=== PATIENT | female | born 1945 | race Caucasian/White ===

== ENCOUNTER 2019-01-21 16:48 | Emergency (ER) | payer MEDICARE ==
[~2019-01-21] VITALS: Ht 162.6 cm; Wt 90.9 kg
[~2019-01-21 16:48] MED LIST: AMLO5TAB4 PO; ATOR40TA7 PO; CITA20TA28 PO; CLOP75TA15 PO; ESTR1TAB23 PO; LOSA50TA3 PO; METO25TA6 PO; PRED5TAB PO; SYN0.025T PO; TRAZ150T78 PO
[2019-01-21 17:40] LABS: BASOPHILS % (AUTO) 0.5 % (0-1); EOSINOPHILS # (AUTO) 0.1 X10'3 (0-0.9); EOSINOPHILS % (AUTO) 1.3 % (0-6); HEMATOCRIT 32.2 % (35.0-45.0); HEMOGLOBIN 10.6 g/dl (12.0-16.0); LYMPHOCYTES # (AUTO) 1.1 X10'3 (1.1-4.8); LYMPHOCYTES % (AUTO) 15.7 % (21-51); MEAN CORPUSCULAR HEMOGLOBIN 29.5 PG (27.0-31.0); MEAN CORPUSCULAR HGB CONC 32.9 g/dL (33.0-36.5); MEAN CORPUSCULAR VOLUME 89.6 FL (78-98); MEAN PLATELET VOLUME 7.1 FL (7.4-10.4); MONOCYTES # (AUTO) 0.8 X10'3 (0-0.9); MONOCYTES % (AUTO) 11.4 % (2-12); NEUTROPHILS # (AUTO) 4.9 X10'3 (1.8-7.7); NEUTROPHILS % (AUTO) 71.1 % (42-75); PLATELET COUNT 255 X10'3 (140-440); WHITE BLOOD COUNT 6.9 X10'3 (4.5-11.0)
[2019-01-21 17:49] LABS: ALANINE AMINOTRANSFERASE 18 U/L (12-78); ALBUMIN 2.9 G/DL (3.4-5.0); ALBUMIN/GLOBULIN RATIO 0.7 (1.1-1.5); ALKALINE PHOSPHATASE 147 IU/L (46-116); ANION GAP 4 (8-16); ASPARTATE AMINO TRANSFERASE 17 U/L (10-37); BILIRUBIN,TOTAL 0.2 MG/DL (0.1-1.0); BLOOD UREA NITROGEN 13 MG/DL (7-18); BUN/CREATININE RATIO 11.2 (6.6-38.0); CALCIUM 8.7 MG/DL (8.5-10.1); CHLORIDE 105 MMOL/L (99-107); CREATININE 1.16 MG/DL (0.40-0.90); GLUCOSE 114 MG/DL (70-104); POTASSIUM 3.7 MMOL/L (3.5-5.1); SODIUM 139 MMOL/L (135-145); TOTAL CARBON DIOXIDE 30.1 MMOL/L (24-32); TOTAL PROTEIN 6.9 G/DL (6.4-8.2); eGFR 46 ML/MIN
--- NOTE | 2019-01-21 19:18 | NUR ---
PATIENTS DAUGHTER CALLED LEFT PHONE # [id number] [phone]
[2019-01-21] MEDS ORDERED: azithromycin 250mg tablet PO ONE (20:10)
[2019-01-21] MEDS ORDERED: predniSONE 20 mg tablet PO ONE (20:10)
[2019-01-21] MEDS ORDERED: ipratropium/albuterol 3ml nebule NEB ONE (20:10)
[2019-01-21] MEDS ORDERED: PRED20TA PO (20:55)
[2019-01-21] MEDS ORDERED: albuterol 2.5 MG/3 ML nebule NEB ONE (20:55)
[2019-01-21] MEDS ORDERED: AZIT-63 PO (20:55)
[2019-01-21] MEDS ORDERED: ALBU18HF2 INH (20:55)
[2019-01-21] MEDS ORDERED: BENZ-16 PO (20:57)
[2019-01-21] MEDS ORDERED: benzonatate 100mg capsule PO ONE (21:00)
[2019-01-21 21:35] VITALS: BP 168/82
== END 2019-01-21 21:43 | disposition home or self-care (01) ==
LOC: ER 16:49
DX: J18.9 Pneumonia, unspecified organism (principal); I11.0 Hypertensive heart disease with heart failure; I50.9 Heart failure, unspecified; I25.2 Old myocardial infarction; J44.9 Chronic obstructive pulmonary disease, unspecified; Z95.1 Presence of aortocoronary bypass graft; Z87.891 Personal history of nicotine dependence; Z88.8 Allergy status to other drugs, medicaments and biological substances; Z91.013 Allergy to seafood
CPT/HCPCS: 36415; 71046; 80053; 83605; 83880; 84145; 84484; 85025; 87040; 93005; 94640; 94760; 99284; J7512

== ENCOUNTER 2019-02-03 15:41 | Emergency (ER) | payer MEDICARE ==
[~2019-02-03] VITALS: Ht 165.1 cm; Wt 91.8 kg
[~2019-02-03 15:41] MED LIST changes: +ALBU18HF2 INH; +AZIT-63 PO; +BENZ-16 PO; +PRED20TA PO
[2019-02-03 16:31] LABS: BASOPHILS % (AUTO) 0 % (0-1); EOSINOPHILS % (AUTO) 0 % (0-6); HEMATOCRIT 32.7 % (35.0-45.0); HEMOGLOBIN 10.7 g/dl (12.0-16.0); LYMPHOCYTES # (AUTO) 0.6 X10'3 (1.1-4.8); LYMPHOCYTES % (AUTO) 5.7 % (21-51); MEAN CORPUSCULAR HGB CONC 32.6 g/dL (33.0-36.5); MEAN CORPUSCULAR VOLUME 88.9 FL (78-98); MEAN PLATELET VOLUME 7.2 FL (7.4-10.4); MONOCYTES # (AUTO) 0.2 X10'3 (0-0.9); MONOCYTES % (AUTO) 2.1 % (2-12); NEUTROPHILS # (AUTO) 10.3 X10'3 (1.8-7.7); NEUTROPHILS % (AUTO) 92.2 % (42-75); PLATELET COUNT 347 X10'3 (140-440); RED BLOOD COUNT 3.68 X10'6 (4.20-5.60); WHITE BLOOD COUNT 11.2 X10'3 (4.5-11.0)
[2019-02-03] MEDS ORDERED: PRED5TAB PO (16:33)
[2019-02-03] MEDS ORDERED: AZIT-72 PO (16:33)
[2019-02-03] MEDS ORDERED: ALBU18HF2 INH (16:33)
[2019-02-03 16:35] LABS: ALANINE AMINOTRANSFERASE 21 U/L (12-78); ALBUMIN 3.1 G/DL (3.4-5.0); ALBUMIN/GLOBULIN RATIO 0.8 (1.1-1.5); ALKALINE PHOSPHATASE 105 IU/L (46-116); ANION GAP 7 (8-16); ASPARTATE AMINO TRANSFERASE 15 U/L (10-37); BILIRUBIN,TOTAL 0.2 MG/DL (0.1-1.0); BLOOD UREA NITROGEN 32 MG/DL (7-18); BUN/CREATININE RATIO 21.6 (6.6-38.0); CALCIUM 8.7 MG/DL (8.5-10.1); CHLORIDE 105 MMOL/L (99-107); CREATININE 1.48 MG/DL (0.40-0.90); GLUCOSE 108 MG/DL (70-104); POTASSIUM 4.6 MMOL/L (3.5-5.1); SODIUM 139 MMOL/L (135-145); TOTAL PROTEIN 6.8 G/DL (6.4-8.2); eGFR 35 ML/MIN
[2019-02-03] MEDS ORDERED: BENZ-49 PO (16:37)
[2019-02-03] MEDS ORDERED: HYDR-4353 PO (16:38)
[2019-02-03 16:42] LABS: PARTIAL THROMBOPLASTIN TIME 24 SECONDS (22-32)
[2019-02-03] MEDS ORDERED: normal saline 1000ML IV soln IVB ONE (16:45)
[2019-02-03] MEDS ORDERED: iohexol 350MG/ML 100ml bottle IV ONE (16:52)
--- NOTE | 2019-02-03 17:37 | NUR ---
Spoke to EDMD regarding elevated BNP and IV fluids; states that he would still like the fluid bolus at this time.
[2019-02-03] MEDS ORDERED: ipratropium/albuterol 3ml nebule NEB ONE (18:25)
[2019-02-03 18:28] VITALS: BP 165/89
--- NOTE | 2019-02-03 18:30 | NUR ---
pt reports improvement in her symptoms since first arriving. Denies any pain or symptoms while lying in the bed. just walked to br with steady gait and reported getting "winded easily" with activity. Pt is hopeful for DC soon. She states the o2 here has helped her. Awaiting svn (jjust ordered). Stable vs. RA sats 88%, using 2l nc and sats 94%.
--- NOTE | 2019-02-03 18:58 | NUR ---
3 HR TROP DRAWN.
--- NOTE | 2019-02-03 19:30 | NUR ---
dr sepulveda talking with pt about discharge. pt reprots he pcp is woking on getting her oxygen for home and this shoud be figured out in the morning. pt's nephew at bedside for transport. pt with ra sats of 89%. Reprots feeling alot better.
== END 2019-02-03 19:45 | disposition home or self-care (01) ==
LOC: ER 15:42
DX: R06.02 Shortness of breath (principal); R09.02 Hypoxemia; I11.0 Hypertensive heart disease with heart failure; I50.9 Heart failure, unspecified; I25.2 Old myocardial infarction; J44.9 Chronic obstructive pulmonary disease, unspecified; Z98.51 Tubal ligation status; Z91.013 Allergy to seafood; Z88.8 Allergy status to other drugs, medicaments and biological substances; Z79.899 Other long term (current) drug therapy
CPT/HCPCS: 36415; 71045; 71275; 80053; 83880; 84484; 85025; 85610; 85730; 93005; 94640; 94760; 99284; J7030; Q9967

== ENCOUNTER 2022-07-16 14:39 | Emergency (ER) | payer MEDICARE, OTHER ==
[~2022-07-16] VITALS: Ht 165.1 cm; Wt 95.4 kg
[~2022-07-16 14:39] MED LIST changes: +AZIT-103 PO; -AZIT-63 PO; -BENZ-16 PO; -ESTR1TAB23 PO; +HYDR-4353 PO; +LOP25T PO; -METO25TA6 PO; -PRED20TA PO; +TES100C PO
[2022-07-16 15:26] VITALS: BP_SYST 126
== END 2022-07-16 17:53 | disposition home or self-care (01) ==
LOC: ER 14:39
DX: M54.50 Low back pain, unspecified (principal); I11.0 Hypertensive heart disease with heart failure; I50.9 Heart failure, unspecified; J44.9 Chronic obstructive pulmonary disease, unspecified; Z91.013 Allergy to seafood; Z88.8 Allergy status to other drugs, medicaments and biological substances; Z91.041 Radiographic dye allergy status; W19.XXXA Unspecified fall, initial encounter; Y93.89 Activity, other specified; Y92.89 Other specified places as the place of occurrence of the external cause; Y99.8 Other external cause status
CPT/HCPCS: 72100; 72220; 99284